=== PATIENT | male | born 2000 | race African-American/Black ===

== ENCOUNTER 2024-04-05 15:54 | Emergency (ER) | payer OTHER ==
--- NOTE | 2024-04-05 16:12 | EDPHYS ---
Physician Documentation [facility] Name: Ervin Leiva Age: 24 yrs Sex: Male : 2000 Arrival Date: 04/05/2024 Time: 15:54 Bed DX2 Private MD: ED Physician Arvind Lee HPI: 04/05 23:32 This 24 yrs old Black Male presents to ER via Ambulatory with complaints of Facial pain.kb 23:32 Patient is a 24-year-old male who presents for pain to left jaw, near his ear that has kb been intermittent for 1 week. Denies fever, toothache. . Historical: - Allergies: 16:06 No Known Allergies; as6 - PMHx: 16:06 None; as6 - PSHx: 16:06 None; as6 - Immunization history:: Adult Immunizations not up to date. - Infectious Disease History:: Denies. - Social history:: Smoking status: Patient reports the use of cigarette tobacco products, denies chronic smoking, but will smoke occasionally. ROS: 23:32 Constitutional: As per HPI kb Exam: 23:32 Constitutional: This is a well developed, well nourished patient who is awake, alert, kb and in no acute distress. Head/Face: Normocephalic, atraumatic. ENT: Moist Mucous membranes Cardiovascular: Regular rate Respiratory: Respirations even and unlabored. No increased work of breathing. Talking in full sentences Abdomen/GI: Soft, non-tender. No distention Skin: Warm, dry with normal turgor. Normal color. MS/ Extremity: Pulses equal, no cyanosis. Neurovascular intact. Full, normal range of motion. Neuro: Awake and alert, GCS 15, oriented to person, place, time, and situation. Moves all extremities. Normal gait. Vital Signs: 16:05 BP 138 / 76; Pulse 56; Resp 18 S; Temp 98.4(O); Pulse Ox 100% on R/A; Weight 95.25 kg as6 (R); Height 6 ft. 3 in. (R); Pain 5/10; 16:05 Body Mass Index 26.25 (95.25 kg, 190.5 cm) as6 16:05 Pain Scale: Adult as6 MDM: 16:01 Patient medically screened. kb 23:33 Data reviewed: vital signs, nurses notes. kb 23:34 Differential diagnosis: Otitis media, dental caries, dental abscess, TMJ pain. Test kb considered but Not performed: CT: CT facial bones considered but patient has no crepitus and TMJ afebrile, nontoxic in appearance, vital signs stable.. Counseling: I had a detailed discussion with the patient and/or guardian regarding the historical points, exam findings, and any diagnostic results supporting the discharge/admit diagnosis, the need for outpatient follow up, an ENT specialist, to return to the emergency department if symptoms worsen or persist or if there are any questions or concerns that arise at home. Administered Medications: No medications were administered Disposition Summary: 04/05/24 16:11 Discharge Ordered Notes: Location: Home kb Condition: Stable kb Diagnosis - Other specified disorders of temporomandibular joint - pain kb Followup: kb - With: Private Physician - When: 2 - 3 days - Reason: Recheck today's complaints, Continuance of care, Re-evaluation by your physician Followup: kb - With: Emergency Department - When: As needed - Reason: Worsening of condition Discharge Instructions: - Discharge Summary Sheet kb - Temporomandibular Joint Syndrome kb Forms: - Medication Reconciliation Form kb - Antibiotic Education kb - Prescription Opioid Use kb - Patient Portal Instructions kb - Leadership Thank You Letter kb - Work release form hb Prescriptions: - Diclofenac Sodium 75 mg Oral tablet, delayed release (enteric coated) - take 1 tablet ORAL route 2 times per day As needed; 30 tablet; Refills: 0, kb Product Selection Permitted Addendum: 04/09/2024 09:33 Co-signature as Attending Physician, Arvind Lee MD I reviewed the patient's care r t provided by the Advanced Practice Provider and agree with the diagnosis and treatment plan. Signatures: Bree Beebe, SHEYLA-Pete Mccray RN RN as6 Arvind Lee MD MD rt Corrections: (The following items were deleted from the chart) 04/05 23:34 23:32 Patient is a 24-year-old male who presents for pain to left jaw, near his ear kb that has been intermittent for 1 week. Denies fever, toothache. . kb
--- NOTE | 2024-04-05 16:12 | ER ---
Nurse's Notes [facility] Name: Ervin Leiva Age: 24 yrs Sex: Male : 2000 Arrival Date: 04/05/2024 Time: 15:54 Bed DX2 Private MD: Diagnosis: Other specified disorders of temporomandibular joint-pain Presentation: 04/05 16:05 Chief complaint: Patient states: pain to left side of face. Coronavirus screen: At this as6 time, the client does not indicate any symptoms associated with coronavirus-19. Ebola Screen: No symptoms or risks identified at this time. Initial Sepsis Screen: Does the patient meet any 2 criteria? No. Patient's initial sepsis screen is negative. Does the patient have a suspected source of infection? No. Patient's initial sepsis screen is negative. Risk Assessment: Do you want to hurt yourself or someone else? Patient reports no desire to harm self or others. Onset of symptoms was April 01, 2024. 16:05 Method Of Arrival: Ambulatory as6 16:05 Acuity: NORA 4 as6 Triage Assessment: 16:22 General: Appears in no apparent distress. comfortable, Behavior is calm, cooperative. as6 Pain: Complains of pain in left side of head Quality of pain is described as pressure, pulsating. EENT: No deficits noted. No signs and/or symptoms were reported regarding the EENT system. Neuro: Level of Consciousness is awake, alert, obeys commands, Oriented to person, place, time, situation. Cardiovascular: Capillary refill < 3 seconds Patient's skin is warm and dry. Respiratory: Respiratory effort is even, unlabored, Respiratory pattern is regular, symmetrical. GI: No deficits noted. No signs and/or symptoms were reported involving the gastrointestinal system. : No deficits noted. No signs and/or symptoms were reported regarding the genitourinary system. Derm: Skin is intact, is healthy with good turgor. Musculoskeletal: Circulation, motion, and sensation intact. Historical: - Allergies: 16:06 No Known Allergies; as6 - PMHx: 16:06 None; as6 - PSHx: 16:06 None; as6 - Immunization history:: Adult Immunizations not up to date. - Infectious Disease History:: Denies. - Social history:: Smoking status: Patient reports the use of cigarette tobacco products, denies chronic smoking, but will smoke occasionally. Screenin:23 [facility] ED Fall Risk Assessment (Adult) History of falling in the last 3 months, as6 including since admission No falls in past 3 months (0 pts) Confusion or Disorientation No (0 pts) Intoxicated or Sedated No (0 pts) Impaired Gait No (0 pts) Mobility Assist Device Used No (0 pt) Altered Elimination No (0 pt) Score/Fall Risk Level 0 - 2 = Low Risk Oriented to surroundings, Maintained a safe environment, Educated pt \T\ family on fall prevention, incl call for assistance when getting out of bed, Assessed \T\ reinforced patient's understanding of fall precautions. Abuse screen: Denies threats or abuse. Denies injuries from another. Nutritional screening: No deficits noted. Tuberculosis screening: No symptoms or risk factors identified. Assessment: 16:23 General: see triage . as6 16:26 Reassessment: Patient appears in no apparent distress at this time. Patient and/or hb family updated on plan of care and expected duration. Pain level reassessed. Patient is alert, oriented x 3, equal unlabored respirations, skin warm/dry/pink. Vital Signs: 16:05 BP 138 / 76; Pulse 56; Resp 18 S; Temp 98.4(O); Pulse Ox 100% on R/A; Weight 95.25 kg as6 (R); Height 6 ft. 3 in. (R); Pain 5/10; 16:05 Body Mass Index 26.25 (95.25 kg, 190.5 cm) as6 16:05 Pain Scale: Adult as6 ED Course: 16:00 Patient arrived in ED. im 16:00 Bree Beebe FNP-C is PHCP. kb 16:01 Arvind Lee MD is Attending Physician. kb 16:06 Triage completed. as6 16:06 Arm band placed on. as6 16:22 Pete Carrera, HUY is Primary Nurse. as6 16:23 Bed in low position. Call light in reach. Provided Education on: follow up. as6 16:23 No provider procedures requiring assistance completed. Patient did not have IV access as6 during this emergency room visit. Administered Medications: No medications were administered Medication: 16:23 VIS not applicable for this client. as6 Outcome: 16:11 Discharge ordered by . kb 16:23 Discharged to home ambulatory, as6 16:23 Condition: stable 16:24 Discharge instructions given to patient, Instructed on discharge instructions, follow as6 up and referral plans. medication usage, Demonstrated understanding of instructions, follow-up care, medications, Prescriptions given X 1, 16:27 Patient left the ED. hb Signatures: Bree Beebe, AGRICULTURE INTERN-C SHEYLA-Lourdes Alcantara RN RN hb Pete Carrera RN RN as6 Alma Zhang
[2024-04-05 16:33] VITALS: BP 138/76; TEMP 98.4; O2SAT 100
== END 2024-04-05 16:27 | disposition home or self-care (01) ==
LOC: ER 15:54
DX: M26.69 Other specified disorders of temporomandibular joint (principal); F17.210 Nicotine dependence, cigarettes, uncomplicated
CPT/HCPCS: 99283

== ENCOUNTER 2024-05-13 08:27 | Emergency (ER) | payer OTHER ==
[2024-05-13 09:14] LABS: SARS-CoV-2 Antigen CONTROL BLUE LINE VIS/BG OK; SARS-CoV-2 Antigen Rapid Res Negative (Negative)
--- NOTE | 2024-05-13 10:25 | EDPHYS ---
Physician Documentation [facility] Name: Ervin Leiva Age: 24 yrs Sex: Male : 2000 Arrival Date: 05/13/2024 Time: 08:27 Bed 20 Private MD: ED Physician Maura Neal HPI: 05/13 08:59 This 24 yrs old Black Male presents to ER via Ambulatory with complaints of Sore Throat.sp3 08:59 24-year-old male with no past medical history presents with sore throat for 2 days sp3 coupled with congestion. No other symptoms including headache, chest pain, shortness of breath, production and cough, abdominal pain, nausea, vomiting, diarrhea, rash, syncope, known sick contacts, travel history, or any other signs or symptoms on ROS at this time.. Historical: - Allergies: 08:40 No Known Allergies; iw - Home Meds: 08:40 None [Active]; iw - PMHx: 08:40 None; iw - Immunization history:: Client reports receiving the 2nd dose of the Covid vaccine. - Infectious Disease History:: Denies. - Social history:: Smoking status: Patient denies any tobacco usage or history of. ROS: 09:00 Constitutional: Negative for fever, chills, and weight loss, Eyes: Negative for injury, sp3 pain, redness, and discharge, Neck: Negative for injury, pain, and swelling, Cardiovascular: Negative for chest pain, palpitations, and edema, Respiratory: Negative for shortness of breath, cough, wheezing, and pleuritic chest pain, Abdomen/GI: Negative for abdominal pain, nausea, vomiting, diarrhea, and constipation, Back: Negative for injury and pain, MS/Extremity: Negative for injury and deformity, Skin: Negative for injury, rash, and discoloration, Neuro: Negative for headache, weakness, numbness, tingling, and seizure, 09:00 All other systems are negative, Exam: 09:00 Constitutional: This is a well developed, well nourished patient who is awake, alert, sp3 and in no acute distress. Head/Face: Normocephalic, atraumatic. Eyes: Pupils equal round and reactive to light, extra-ocular motions intact. Lids and lashes normal. Conjunctiva and sclera are non-icteric and not injected. Cornea within normal limits. Periorbital areas with no swelling, redness, or edema. Neck: Trachea midline, no thyromegaly or masses palpated, and no cervical lymphadenopathy. Supple, full range of motion without nuchal rigidity, or vertebral point tenderness. No Meningismus. Chest/axilla: Normal chest wall appearance and motion. Nontender with no deformity. No lesions are appreciated. Cardiovascular: Regular rate and rhythm with a normal S1 and S2. No gallops, murmurs, or rubs. Normal PMI, no JVD. No pulse deficits. Respiratory: Lungs have equal breath sounds bilaterally, clear to auscultation and percussion. No rales, rhonchi or wheezes noted. No increased work of breathing, no retractions or nasal flaring. Abdomen/GI: Soft, non-tender, with normal bowel sounds. No distension or tympany. No guarding or rebound. No evidence of tenderness throughout. Back: No spinal tenderness. No costovertebral tenderness. Full range of motion. Skin: Warm, dry with normal turgor. Normal color with no rashes, no lesions, and no evidence of cellulitis. 09:00 ENT: Rhinorrhea without significant findings. Vital Signs: 08:39 BP 140 / 72; Pulse 64; Resp 16; Temp 98.1; Pulse Ox 98% ; Weight 95.25 kg; Height 6 ft. iw 3 in. ; 10:39 BP 138 / 74; Pulse 67; Resp 16; Pulse Ox 100% on R/A; mb9 08:39 Body Mass Index 26.25 (95.25 kg, 190.5 cm) iw MDM: 08:42 Patient medically screened. sp3 09:00 Data reviewed: vital signs, nurses notes, lab test result(s). ED course: 24-year-old sp3 male with sore throat and upper respiratory infection. Swabs are all pending including COVID, influenza, strep. Not highly suspicious for pneumonia, sepsis, shock or any other critical pathology. Patient is asking for refill of his albuterol which she had last time he had something like this which she said was helpful. If workup is negative, we will discharge patient home with general precautions, albuterol MDI and OTC meds. Antibiotics will be layered on if indicated.. 10:24 ED course: Workup negative. Will discharge home on diclofenac and inhaler.. sp3 05/13 08:43 Order name: Strep sp3 05/13 08:43 Order name: Flu; Complete Time: 10:24 sp3 05/13 08:43 Order name: SARS RAPID; Complete Time: 10:24 sp3 05/13 09:20 Order name: Throat Culture EDMS Administered Medications: No medications were administered Disposition Summary: 05/13/24 10:24 Discharge Ordered Notes: Location: Home sp3 Condition: Stable sp3 Diagnosis - Viral illness sp3 Followup: sp3 - With: Private Physician - When: Upon discharge from the Emergency Department - Reason: Continuance of care Discharge Instructions: - Discharge Summary Sheet sp3 - Viral Illness, Adult sp3 Forms: - Medication Reconciliation Form sp3 - Antibiotic Education sp3 - Prescription Opioid Use sp3 - Patient Portal Instructions sp3 - Leadership Thank You Letter sp3 - Work release form mb9 Prescriptions: - Ventolin HFA 90 mcg/actuation Inhalation HFA Aerosol Inhaler - inhale 1 inhalation INHALATION route every 4 to 6 hours as needed for sp3 bronchospasm; administer via ventilator; 1 Applicator; Refills: 0, Product Selection Permitted - Diclofenac Sodium 75 mg Oral Tablet Sustained Release - take 1 tablet ORAL route 2 times per day; 30 tablet; Refills: 0, Product sp3 Selection Permitted Signatures: Dispatcher [employer] Siria Armstrong RN RN iw Patel, Setul, MD MD sp3 Corrections: (The following items were deleted from the chart) 08:40 08:40 Home Meds: Unable to obtain; [facility] 08:43 08:43 Group A Streptococcus Rapid Sc+BA.LAB.BRZ ordered. EDMS EDMS 08:43 08:43 Influenza Screen (A \T\ B)+BA.LAB.BRZ ordered. EDMS EDMS 08:43 08:43 SARS-COV-2 Antigen Rapid+I.LAB.BRZ ordered. EDMS EDMS
--- NOTE | 2024-05-13 10:25 | ER ---
Nurse's Notes [facility] Name: Ervin Leiva Age: 24 yrs Sex: Male : 2000 Arrival Date: 05/13/2024 Time: 08:27 Bed 20 Private MD: Diagnosis: Viral illness Presentation: 05/13 08:39 Chief complaint: Patient states: nasal congestion and sore throat started Saturday. iw Coronavirus screen: Client presents with at least one sign or symptom that may indicate coronavirus-19. Ebola Screen: Patient negative for fever greater than or equal to 101.5 degrees Fahrenheit, and additional compatible Ebola Virus Disease symptoms Patient denies exposure to infectious person. Patient denies travel to an Ebola-affected area in the 21 days before illness onset. No symptoms or risks identified at this time. Initial Sepsis Screen: Does the patient meet any 2 criteria? No. Patient's initial sepsis screen is negative. Does the patient have a suspected source of infection? No. Patient's initial sepsis screen is negative. Risk Assessment: Do you want to hurt yourself or someone else? Patient reports no desire to harm self or others. Onset of symptoms was May 11, 2024. 08:39 Method Of Arrival: Ambulatory iw 08:39 Acuity: NORA 4 iw Historical: - Allergies: 08:40 No Known Allergies; iw - Home Meds: 08:40 None [Active]; iw - PMHx: 08:40 None; iw - Immunization history:: Client reports receiving the 2nd dose of the Covid vaccine. - Infectious Disease History:: Denies. - Social history:: Smoking status: Patient denies any tobacco usage or history of. Screenin:08 [facility] ED Fall Risk Assessment (Adult) History of falling in the last 3 months, mb9 including since admission No falls in past 3 months (0 pts) Confusion or Disorientation No (0 pts) Intoxicated or Sedated No (0 pts) Impaired Gait No (0 pts) Mobility Assist Device Used No (0 pt) Altered Elimination No (0 pt) Score/Fall Risk Level 0 - 2 = Low Risk Oriented to surroundings, Maintained a safe environment, Educated pt \T\ family on fall prevention, incl call for assistance when getting out of bed. Abuse screen: Denies threats or abuse. Nutritional screening: No deficits noted. Tuberculosis screening: No symptoms or risk factors identified. Assessment: 09:07 General: Appears in no apparent distress. Behavior is calm, cooperative. Pain: mb9 Complains of pain in entire body Pain does not radiate. Quality of pain is described as throbbing, Pain began suddenly, Is continuous. Neuro: Ortega Agitation-Sedation Scale (RASS): 0 - Alert and Calm Level of Consciousness is awake, alert, obeys commands, Oriented to person, place, time, situation, Appropriate for age. Cardiovascular: Patient's skin is warm and dry. Respiratory: Reports cough that is Airway is patent Respiratory effort is even, unlabored, Respiratory pattern is regular, symmetrical, Breath sounds are clear bilaterally. GI: Abdomen is round non-distended. : No signs and/or symptoms were reported regarding the genitourinary system. EENT: Throat is reddened Reports pain since throat. Derm: Skin is pink, warm \T\ dry. Musculoskeletal: Range of motion: intact in all extremities. 10:09 Reassessment: No changes from previously documented assessment. Patient and/or family mb9 updated on plan of care and expected duration. Pain level reassessed. Patient is alert, oriented x 3, equal unlabored respirations, skin warm/dry/pink. Vital Signs: 08:39 BP 140 / 72; Pulse 64; Resp 16; Temp 98.1; Pulse Ox 98% ; Weight 95.25 kg; Height 6 ft. iw 3 in. ; 10:39 BP 138 / 74; Pulse 67; Resp 16; Pulse Ox 100% on R/A; mb9 08:39 Body Mass Index 26.25 (95.25 kg, 190.5 cm) iw ED Course: 08:29 Patient arrived in ED. im 08:40 Triage completed. iw 08:40 Arm band placed on. iw 08:42 Maura Neal MD is Attending Physician. sp3 09:07 Felicita Paulino RN is Primary Nurse. mb9 09:07 SARS RAPID Sent. mb9 09:07 Flu Sent. mb9 09:07 Strep Sent. mb9 09:08 Bed in low position. Call light in reach. Side rails up X 1. Provided Education on: mb9 press call light if needing anything. Client placed on continuous cardiac and pulse oximetry monitoring. NIBP monitoring applied. 09:09 No provider procedures requiring assistance completed. mb9 10:36 Patient did not have IV access during this emergency room visit. mb9 Administered Medications: No medications were administered Medication: 09:09 VIS not applicable for this client. mb9 Outcome: 10:24 Discharge ordered by . sp3 10:39 Discharged to home ambulatory, mb9 10:39 Condition: stable 10:39 Discharge instructions given to patient, Instructed on discharge instructions, follow up and referral plans. Demonstrated understanding of instructions, follow-up care, medications, Prescriptions given X 2, 10:39 Patient left the ED. mb9 Signatures: Siria Jaeger RN Maura Phillips MD MD sp3 Felicita Paulino RN RN mb9 Alma Zhang Corrections: (The following items were deleted from the chart) 08:40 08:40 Home Meds: Unable to obtain; [facility]
[2024-05-13 10:55] VITALS: BP 138/74; TEMP 98.1; O2SAT 100
== END 2024-05-13 10:39 | disposition home or self-care (01) ==
LOC: ER 08:27
DX: B34.9 Viral infection, unspecified (principal); Z11.52 Encounter for screening for COVID-19
CPT/HCPCS: 36415; 87070; 87081; 87804; 87811; 99283